=== PATIENT | female | born 1935 | race Caucasian/White ===

== ENCOUNTER 2019-04-08 16:19 | Observation (INO) | payer MEDICARE ==
[~2019-04-08] VITALS: Ht 165.1 cm; Wt 71.7 kg
[~2019-04-08 16:19] MED LIST: AMLODIPINE BESYL5 MG PO; BENADRYL 50MG C50 MG PO; CIPROFLOXACN500 MG PO; COZAAR100 MG PO; DOXYCYCL HYC100 MG PO; DUREZOL0.05 % OS; ECOTRIN LOW STR81 MG PO; ISOSORB MONO60 M1 PO; LORTAB 5/3255 MG PO; MEDDOSEPAK PO; METO50TA52 PO; MITIGARE0.6 MG PO; MURO OS; PEPCID20 MG PO; SIMVASTATIN20 MG PO; VALSARTAN320 MG PO
[2019-04-08 16:41] LABS: HEMATOCRIT 42.4 % (37.0-47.0); HEMOGLOBIN 13.5 g/dl (12.0-16.0); IMMATURE GRANULOCYTES 0.5 % (0.0-5.0); MEAN CELL VOLUME 95.3 fL CALC (80.0-100.0); MEAN CORPUSCULAR HGB 30.3 pG CALC (26.0-32.0); MEAN CORPUSCULAR HGB CONC 31.8 g/L CALC (32.0-36.0); NEUT# 4.89 thou/uL (2.00-7.15); RED BLOOD COUNT 4.45 mill/uL (4.20-5.60); RED CELL DISTRI WIDTH 14.4 % (11.5-15.5)
[2019-04-08 16:57] LABS: ANION GAP 16 (6-22 (CALC)); BUN 14 mg/dL (8-23); BUN/CREATININE RATIO 13 (12-20 (CALC)); CARBON DIOXIDE 25 mmol/l (22-30); CHLORIDE 102 mmol/l (95-108); CREATININE 1.1 mg/dL (0.5-1.0); GFR 47 ML/MIN (>=60 (CALC)); GFR FOR AFR.AMER. 57 ML/MIN (>=60 (CALC)); POTASSIUM 3.3 mmol/l (3.5-5.1); SODIUM 140 mmol/l (137-146)
[2019-04-08] MEDS ORDERED: PLAVIX75 MG PO (17:04)
[2019-04-08] MEDS ORDERED: LIPITOR40 M1 PO (17:04)
[2019-04-08] MEDS ORDERED: ACYCLOVIR800 MG PO (17:05)
[2019-04-08] MEDS ORDERED: PROTONIX40 M2 PO (17:05)
[2019-04-08] MEDS ORDERED: ACETAMIN500 M2 PO (17:07)
[2019-04-08] MEDS ORDERED: THERA TEARS A0.025 % OU (17:08)
[2019-04-08] MEDS ORDERED: MULTI VIT PO (17:08)
[2019-04-08] MEDS ORDERED: [UNRECOGNIZED DRUG - OTHER] PO (17:09)
[2019-04-08 19:30] VITALS: BP 127/66
[2019-04-09 00:29] VITALS: BP 131/77
[2019-04-09 04:23] VITALS: BP 161/72
[2019-04-09 05:25] LABS: HEMATOCRIT 42.5 % (37.0-47.0); HEMOGLOBIN 13.7 g/dl (12.0-16.0); IMMATURE GRANULOCYTES 0.4 % (0.0-5.0); MEAN CELL VOLUME 95.5 fL CALC (80.0-100.0); MEAN CORPUSCULAR HGB 30.8 pG CALC (26.0-32.0); MEAN CORPUSCULAR HGB CONC 32.2 g/L CALC (32.0-36.0); NEUT# 4.91 thou/uL (2.00-7.15); RED BLOOD COUNT 4.45 mill/uL (4.20-5.60); RED CELL DISTRI WIDTH 14.5 % (11.5-15.5)
[2019-04-09 05:50] LABS: ALBUMIN 3.9 g/dL (3.2-5.0); BILIRUBIN, TOTAL 0.7 mg/dL (0.0-1.4); BUN 12 mg/dL (8-23); BUN/CREATININE RATIO 14 (12-20 (CALC)); CARBON DIOXIDE 26 mmol/l (22-30); CHLORIDE 105 mmol/l (95-108); CREATININE 0.9 mg/dL (0.5-1.0); GFR 60 ML/MIN (>=60 (CALC)); GFR FOR AFR.AMER. > 60 ML/MIN (>=60 (CALC)); SODIUM 141 mmol/l (137-146); TOTAL PROTEIN 6.6 g/dL (6.3-8.2)
[2019-04-09 05:52] LABS: ALKALINE PHOSPHATASE 194 u/l (38-126); ANION GAP 14 (6-22 (CALC)); POTASSIUM 4.2 mmol/l (3.5-5.1); SGOT/AST 219 u/l (9-36)
[2019-04-09 08:50] VITALS: BP 135/56
[2019-04-09 10:40] VITALS: BP 148/74
[2019-04-09 14:22] LABS: URINE BILIRUBIN - DIPSTICK NEGATIVE (NEGATIVE); URINE BLOOD DIPSTICK NEGATIVE (NEGATIVE); URINE COLOR YELLOW; URINE GLUCOSE - DIPSTICK NEGATIVE (NEGATIVE); URINE KETONE NEGATIVE (NEGATIVE); URINE LEUK ESTERASE NEGATIVE (NEGATIVE); URINE NITRITE - DIPSTICK NEGATIVE (Negative); URINE PROTEIN - DIPSTICK NEGATIVE (NEG-TRACE); URINE SPECIFIC GRAVITY <=1.005; URINE UROBILINOGEN - DIPSTICK 0.2 E.U./dL (0.2)
== END 2019-04-09 15:40 | disposition home or self-care (01) ==
LOC: ED 16:19 → ED-I 18:44 → ED 19:01 → MS2 19:02
PROVIDERS: Family Medicine; Nurse Practitioner Family; ADMIT Internal Medicine; ATTEND Internal Medicine
DX: R07.9 Chest pain, unspecified (principal); R74.0 Nonspecific elevation of levels of transaminase and lactic acid dehydrogenase [LDH]; I12.9 Hypertensive chronic kidney disease with stage 1 through stage 4 chronic kidney disease, or unspecified chronic kidney disease; N18.3 Chronic kidney disease, stage 3 (moderate); I25.10 Atherosclerotic heart disease of native coronary artery without angina pectoris; M19.90 Unspecified osteoarthritis, unspecified site; M10.9 Gout, unspecified; K52.9 Noninfective gastroenteritis and colitis, unspecified; E78.5 Hyperlipidemia, unspecified; I25.2 Old myocardial infarction; B02.30 Zoster ocular disease, unspecified; Z86.73 Personal history of transient ischemic attack (TIA), and cerebral infarction without residual deficits; Z95.5 Presence of coronary angioplasty implant and graft; Z79.899 Other long term (current) drug therapy
CPT/HCPCS: G0378; J1650; Q9967

== ENCOUNTER 2019-06-28 | Emergency (ER) | payer MEDICARE ==
[~2019-06-28] MED LIST changes: +ACETAMIN500 M2 PO; +ACYCLOVIR800 MG PO; +LIPITOR40 M1 PO; +MULTI VIT PO; +PLAVIX75 MG PO; +PROTONIX40 M2 PO; +THERA TEARS A0.025 % OU; +[UNRECOGNIZED DRUG - OTHER] PO
[2019-06-28] MEDS ORDERED: ZPAK PO (12:36)
[2019-06-28] MEDS ORDERED: ATORVASTATIN CA40 MG PO (12:37)
[2019-06-28] MEDS ORDERED: TYLENOL500 MG PO (12:39)
[2019-06-28] MEDS ORDERED: TESSALON PERLE100 MG PO (13:56)
[2019-06-28] MEDS ORDERED: ZITHROMAX500 MG PO (13:56)
== END 2019-06-28 14:05 | disposition home or self-care (01) ==
DX: J06.9 Acute upper respiratory infection, unspecified (principal); I10 Essential (primary) hypertension

== ENCOUNTER 2019-10-17 06:37 | Emergency (ER) | payer MEDICARE ==
[~2019-10-17 06:37] MED LIST changes: +ATORVASTATIN CA40 MG PO; +TESSALON PERLE100 MG PO; +TYLENOL500 MG PO; +ZITHROMAX500 MG PO; +ZPAK PO
[2019-10-17] MEDS ORDERED: PROBIOTI3 (07:07)
[2019-10-17] MEDS ORDERED: VITA D-1000 PO (07:07)
[2019-10-17 07:37] LABS: HEMATOCRIT 41.7 % (37.0-47.0); HEMOGLOBIN 13.3 g/dl (12.0-16.0); IMMATURE GRANULOCYTES 0.3 % (0.0-5.0); MEAN CELL VOLUME 90.8 fL CALC (80.0-100.0); MEAN CORPUSCULAR HGB CONC 31.9 g/dL CAL (32.0-36.0); NEUT# 5.58 thou/uL (2.00-7.15); RED BLOOD COUNT 4.59 mill/uL (4.20-5.60)
[2019-10-17 07:37] LABS: URINE BILIRUBIN - DIPSTICK NEGATIVE (NEGATIVE); URINE BLOOD DIPSTICK NEGATIVE (NEGATIVE); URINE GLUCOSE - DIPSTICK NEGATIVE (NEGATIVE); URINE KETONE NEGATIVE (NEGATIVE); URINE LEUK ESTERASE NEGATIVE (NEGATIVE); URINE PH 6.5 (4.5-8.0); URINE PROTEIN - DIPSTICK TRACE mg/dL (NEG-TRACE)
[2019-10-17 07:43] LABS: URINE COLOR ORANGE
[2019-10-17 07:45] LABS: URINE NITRITE - DIPSTICK NEGATIVE (Negative)
[2019-10-17 07:51] LABS: ANION GAP 11 (6-22 (CALC)); BUN 17 mg/dL (8-23); BUN/CREATININE RATIO 18 (12-20 (CALC)); CARBON DIOXIDE 26 mmol/l (22-30); CHLORIDE 104 mmol/l (95-108); CREATININE 0.9 mg/dL (0.5-1.0); GFR 59 ML/MIN (>=60 (CALC)); GFR FOR AFR.AMER. > 60 ML/MIN (>=60 (CALC)); POTASSIUM 3.7 mmol/l (3.5-5.1); SODIUM 137 mmol/l (137-146)
[2019-10-17] MEDS ORDERED: METRONIDAZOL500 MG PO (10:39)
[2019-10-17] MEDS ORDERED: AUGMENTIN500TAB PO (10:39)
[2019-10-17 11:10] VITALS: BP 140/75
== END 2019-10-17 11:10 | disposition home or self-care (01) ==
LOC: ED 06:37
PROVIDERS: Student in an Organized Health Care Education/Training Program
DX: K57.32 Diverticulitis of large intestine without perforation or abscess without bleeding (principal); I10 Essential (primary) hypertension; I25.2 Old myocardial infarction; Z86.73 Personal history of transient ischemic attack (TIA), and cerebral infarction without residual deficits; Z87.440 Personal history of urinary (tract) infections
CPT/HCPCS: Q9967

== ENCOUNTER 2021-06-20 03:08 | Observation (INO) | payer MEDICARE ==
[~2021-06-20] VITALS: Ht 165.1 cm; Wt 70.0 kg
[~2021-06-20 03:08] MED LIST changes: +AUGMENTIN500TAB PO; +METRONIDAZOL500 MG PO; +PROBIOTI3; +VITA D-1000 PO
--- NOTE | 2021-06-20 03:08 | NUR ---
PT TO ROOM VIA W/C FOR BEDSIDE TRIAGE AFTER MOD ASSIST GETTING OUT OF THE CAR , COMFORT MEASURES PROVIDED
[2021-06-20 03:56] LABS: HEMATOCRIT 44.2 % (37.0-47.0); HEMOGLOBIN 14.1 g/dl (12.0-16.0); IMMATURE GRANULOCYTES 0.4 % (0.0-5.0); MEAN CELL VOLUME 95.5 fL CALC (80.0-100.0); MEAN CORPUSCULAR HGB 30.5 pG CALC (26.0-32.0); MEAN CORPUSCULAR HGB CONC 31.9 g/dL CAL (32.0-36.0); NEUT# 5.03 thou/uL (2.00-7.15); RED BLOOD COUNT 4.63 mill/uL (4.20-5.60); RED CELL DISTRI WIDTH 13.1 % (11.5-15.5)
--- NOTE | 2021-06-20 04:08 | NUR ---
LABS DRAWN, PT REPSOITONED FOR COMFORT AND BLANKETS PROVIDED FOR COMFORT, DAUGHTER AT BEDSIDE.
[2021-06-20 04:12] LABS: ALBUMIN 4.3 g/dL (3.2-5.0); ALKALINE PHOSPHATASE 66 u/l (38-126); BILIRUBIN, TOTAL 1.1 mg/dL (0.0-1.4); BUN 15 mg/dL (8-23); BUN/CREATININE RATIO 16 (12-20 (CALC)); CHLORIDE 105 mmol/l (95-108); CREATININE 0.9 mg/dL (0.5-1.0); GFR 59 ML/MIN (>=60 (CALC)); GFR FOR AFR.AMER. > 60 ML/MIN (>=60 (CALC)); POTASSIUM 4.1 mmol/l (3.5-5.1); SGOT/AST 35 u/l (9-36); SODIUM 139 mmol/l (137-146); TOTAL PROTEIN 7.6 g/dL (6.3-8.2)
[2021-06-20 04:13] LABS: ANION GAP 15 (6-22 (CALC)); CARBON DIOXIDE 23 mmol/l (22-30)
[2021-06-20 04:24] LABS: MYOGLOBIN 49 ng/mL (0 - 62)
--- NOTE | 2021-06-20 05:15 | NUR ---
MEDICATED FOR PAIN ORDERED, DAUGHTER REMAINS AT BEDSIDE
--- NOTE | 2021-06-20 05:59 | NUR ---
PT MEDICATED EARLIER ORDERED, NO NEW COMPLAINTS STATES PAIN REMAINS INYERMITTENT, WILL CONTINUE TO MONITOR,
--- NOTE | 2021-06-20 06:20 | NUR ---
REPORT CALLED TO FRED PARISH IN ICU.
--- NOTE | 2021-06-20 06:35 | NUR ---
PT TRANSPORTED TO ICU (MED SURG OVERFLOW) VIA WHEELCHAIR, ALL BELONGINGS SENT WITH PT.DAUGHTER AWAARE OF LOCATION AND REASON WELL ROOM NUMBER
[2021-06-20 07:00] VITALS: BP 157/77
[2021-06-20 08:00] VITALS: BP 124/56
--- NOTE | 2021-06-20 08:00 | NUR ---
PT ARRIVES TO ICU-6 FROM ER VIA WHEELCHAIR, SEEN ALERT AND ORIENTED X 3. LUNGS CLEAR, RA. BM TODAY WHILE IN ER. NO COMPLAINT OF CHEST PAIN OR SHORTNESS OF BREATH. ADMISSION ASSESSMENT COMPLETED WITHOUT ISSUE. PT STATES THAT SHE IS CHAIR BOUND, THIS FROM WEAK ARTHRITIC KNEES. DTR LIVES WITH PT.
--- NOTE | 2021-06-20 10:47 | NUR ---
PT SEEN BY DR MCCALL THIS MORNING. PT DENIES CHEST DISCOMFORT SINCE ARRIVAL TO ICU. DAUGHTER IS AT BEDSIDE NOW.
[2021-06-20 11:00] VITALS: BP 148/76
[2021-06-20 12:00] VITALS: BP 130/83
--- NOTE | 2021-06-20 13:21 | NUR ---
PT WITH DAUGHTER AT BEDSIDE. PT ASSISTED TO BSC TWICE THIS MORNING. PT DID HAVE EPISODE OF CHEST DISCOMFORT, EKG DONE, SHOWN TO DR MCCALL VIA TEXT.
[2021-06-20 14:00] VITALS: BP 133/72
--- NOTE | 2021-06-20 15:51 | NUR ---
PT VERBALIZES UNDERSTANDING OF DC INSTRUCTIONS, TAKEN BY WHEELCHAIR TO VEHICLE. PT LEAVES [facility] IN STABLE CONDITION.
== END 2021-06-20 15:45 | disposition home or self-care (01) ==
LOC: ED 03:08 → ED-I 04:55 → ED 05:08 → ICU 05:09
PROVIDERS: Emergency Medicine; ADMIT Hospitalist; ATTEND Hospitalist
DX: R07.9 Chest pain, unspecified (principal); I12.9 Hypertensive chronic kidney disease with stage 1 through stage 4 chronic kidney disease, or unspecified chronic kidney disease; N18.30 Chronic kidney disease, stage 3 unspecified; I25.10 Atherosclerotic heart disease of native coronary artery without angina pectoris; E78.5 Hyperlipidemia, unspecified; M06.9 Rheumatoid arthritis, unspecified; M10.9 Gout, unspecified; I25.2 Old myocardial infarction; Z95.5 Presence of coronary angioplasty implant and graft; Z86.73 Personal history of transient ischemic attack (TIA), and cerebral infarction without residual deficits; Z79.02 Long term (current) use of antithrombotics/antiplatelets; Z20.822 Contact with and (suspected) exposure to COVID-19
CPT/HCPCS: S0164

== ENCOUNTER 2022-01-14 18:40 | Emergency (ER) | payer MEDICARE ==
[~2022-01-14] VITALS: Ht 165.1 cm; Wt 68.0 kg
[2022-01-14] VITALS (11 sets, daily range): BP systolic 135–160; BP diastolic 65–83
[~2022-01-14 18:40] MED LIST changes: +CALCIUM 600 +600 MG PO; -PROBIOTI3; +PROBIOTIC ACIDO1 CA1 PO; -TYLENOL500 MG PO; -VITA D-1000 PO; +[UNRECOGNIZED DRUG - OTHER] PO
[2022-01-14 20:39] LABS: HEMATOCRIT 41.5 % (37.0-47.0); HEMOGLOBIN 13.6 g/dl (12.0-16.0); IMMATURE GRANULOCYTES 0.3 % (0.0-5.0); MEAN CELL VOLUME 91.8 fL CALC (80.0-100.0); MEAN CORPUSCULAR HGB 30.1 pG CALC (26.0-32.0); MEAN CORPUSCULAR HGB CONC 32.8 g/dL CAL (32.0-36.0); NEUT# 4.3 thou/uL (2.00-7.15); RED BLOOD COUNT 4.52 mill/uL (4.20-5.60); RED CELL DISTRI WIDTH 13.6 % (11.5-15.5)
[2022-01-14 20:52] LABS: ALBUMIN 4.3 g/dL (3.2-5.0); ALKALINE PHOSPHATASE 67 u/l (38-126); ANION GAP 14 (6-22 (CALC)); BILIRUBIN, TOTAL 0.7 mg/dL (0.0-1.4); BUN 15 mg/dL (8-23); BUN/CREATININE RATIO 16 (12-20 (CALC)); CARBON DIOXIDE 25 mmol/l (22-30); CHLORIDE 100 mmol/l (95-108); CREATININE 0.9 mg/dL (0.5-1.0); GFR FOR AFR.AMER. > 60 ML/MIN (>=60 (CALC)); GFR OTHER RACES 59 ML/MIN (>=60 (CALC)); POTASSIUM 4.1 mmol/l (3.5-5.1); SGOT/AST 43 u/l (9-36); TOTAL PROTEIN 7.4 g/dL (6.3-8.2)
[2022-01-14 20:53] LABS: SODIUM 135 mmol/l (137-146)
[2022-01-14] MEDS ORDERED: PAXLOVID PO (21:30)
== END 2022-01-14 23:08 | disposition home or self-care (01) ==
LOC: ED 18:40
PROVIDERS: Emergency Medicine
DX: U07.1 COVID-19 (principal); M79.10 Myalgia, unspecified site; R51.9 Headache, unspecified; I10 Essential (primary) hypertension; I25.2 Old myocardial infarction; M10.9 Gout, unspecified; Z95.5 Presence of coronary angioplasty implant and graft; Z86.73 Personal history of transient ischemic attack (TIA), and cerebral infarction without residual deficits

== ENCOUNTER 2022-01-17 07:19 | Emergency (ER) | payer MEDICARE ==
[2022-01-17] VITALS (23 sets, daily range): BP systolic 102–163; BP diastolic 67–125
[~2022-01-17] VITALS: Ht 165.1 cm; Wt 62.2 kg
[~2022-01-17 07:19] MED LIST changes: +PAXLOVID PO
[2022-01-17 07:37] LABS: HEMATOCRIT 46.9 % (37.0-47.0); IMMATURE GRANULOCYTES 0.4 % (0.0-5.0); MEAN CORPUSCULAR HGB 30.3 pG CALC (26.0-32.0); MEAN CORPUSCULAR HGB CONC 33.7 g/dL CAL (32.0-36.0); NEUT# 2.65 thou/uL (2.00-7.15); RED BLOOD COUNT 5.21 mill/uL (4.20-5.60); RED CELL DISTRI WIDTH 13.9 % (11.5-15.5)
[2022-01-17 07:44] LABS: HEMOGLOBIN 15.8 g/dl (12.0-16.0)
[2022-01-17 09:26] LABS: ALBUMIN 4.2 g/dL (3.2-5.0); ALKALINE PHOSPHATASE 63 u/l (38-126); ANION GAP 14 (6-22 (CALC)); BILIRUBIN, TOTAL 0.5 mg/dL (0.0-1.4); BUN 15 mg/dL (8-23); BUN/CREATININE RATIO 14 (12-20 (CALC)); CARBON DIOXIDE 25 mmol/l (22-30); CHLORIDE 99 mmol/l (95-108); GFR FOR AFR.AMER. > 60 ML/MIN (>=60 (CALC)); GFR OTHER RACES 52 ML/MIN (>=60 (CALC)); POTASSIUM 4.3 mmol/l (3.5-5.1); SGOT/AST 68 u/l (9-36); SODIUM 134 mmol/l (137-146); TOTAL PROTEIN 7.2 g/dL (6.3-8.2)
[2022-01-17 10:22] LABS: URINE BILIRUBIN - DIPSTICK NEGATIVE (NEGATIVE); URINE BLOOD DIPSTICK TRACE-INTACT (NEGATIVE); URINE COLOR YELLOW; URINE GLUCOSE - DIPSTICK NEGATIVE (NEGATIVE); URINE KETONE NEGATIVE (NEGATIVE); URINE LEUK ESTERASE TRACE (NEGATIVE); URINE PROTEIN - DIPSTICK NEGATIVE (NEG-TRACE); URINE SPECIFIC GRAVITY 1.015; URINE UROBILINOGEN - DIPSTICK 0.2 E.U./dL (0.2)
[2022-01-17 10:27] LABS: URINE NITRITE - DIPSTICK NEGATIVE (Negative)
== END 2022-01-17 13:42 | disposition home or self-care (01) ==
LOC: ED 07:19
PROVIDERS: Family Medicine
DX: R19.7 Diarrhea, unspecified (principal); U07.1 COVID-19; R10.31 Right lower quadrant pain; R10.32 Left lower quadrant pain
CPT/HCPCS: Q9967

== ENCOUNTER 2022-01-23 16:18 | Observation (INO) | payer MEDICARE ==
[2022-01-23] VITALS (14 sets, daily range): BP systolic 109–150; BP diastolic 71–97
[~2022-01-23] VITALS: Ht 165.1 cm; Wt 67.5 kg
[2022-01-23 17:11] LABS: URINE BILIRUBIN - DIPSTICK NEGATIVE (NEGATIVE); URINE BLOOD DIPSTICK NEGATIVE (NEGATIVE); URINE COLOR YELLOW; URINE GLUCOSE - DIPSTICK NEGATIVE (NEGATIVE); URINE KETONE NEGATIVE (NEGATIVE); URINE LEUK ESTERASE NEGATIVE (NEGATIVE); URINE PROTEIN - DIPSTICK NEGATIVE (NEG-TRACE); URINE UROBILINOGEN - DIPSTICK 0.2 E.U./dL (0.2)
[2022-01-23 17:12] LABS: HEMOGLOBIN 16.2 g/dl (12.0-16.0); IMMATURE GRANULOCYTES 2.1 % (0.0-5.0); MEAN CELL VOLUME 88.1 fL CALC (80.0-100.0); MEAN CORPUSCULAR HGB 29.7 pG CALC (26.0-32.0); MEAN CORPUSCULAR HGB CONC 33.8 g/dL CAL (32.0-36.0); NEUT# 6.5 thou/uL (2.00-7.15); RED BLOOD COUNT 5.45 mill/uL (4.20-5.60); RED CELL DISTRI WIDTH 13.6 % (11.5-15.5)
[2022-01-23 17:14] LABS: URINE NITRITE - DIPSTICK NEGATIVE (Negative)
[2022-01-23 17:40] LABS: ALBUMIN 4.7 g/dL (3.2-5.0); ALKALINE PHOSPHATASE 77 u/l (38-126); ANION GAP 18 (6-22 (CALC)); BILIRUBIN, TOTAL 0.6 mg/dL (0.0-1.4); BUN 29 mg/dL (8-23); BUN/CREATININE RATIO 29 (12-20 (CALC)); CARBON DIOXIDE 22 mmol/l (22-30); CHLORIDE 98 mmol/l (95-108); GFR FOR AFR.AMER. > 60 ML/MIN (>=60 (CALC)); GFR OTHER RACES 52 ML/MIN (>=60 (CALC)); POTASSIUM 4.1 mmol/l (3.5-5.1); SGOT/AST 36 u/l (9-36); SODIUM 134 mmol/l (137-146); TOTAL PROTEIN 7.7 g/dL (6.3-8.2)
[2022-01-24] VITALS (10 sets, daily range): BP systolic 88–124; BP diastolic 45–80
[2022-01-24 06:04] LABS: ANION GAP 14 (6-22 (CALC)); BUN 25 mg/dL (8-23); BUN/CREATININE RATIO 28 (12-20 (CALC)); CALCULATED LDLCHOLESTEROL 54 mg/dL (62-129 (CALC)); CARBON DIOXIDE 23 mmol/l (22-30); CHLORIDE 102 mmol/l (95-108); CREATININE 0.9 mg/dL (0.5-1.0); GFR FOR AFR.AMER. > 60 ML/MIN (>=60 (CALC)); GFR OTHER RACES 59 ML/MIN (>=60 (CALC)); HDL CHOLESTEROL 55 mg/dL (>=40); POTASSIUM 3.3 mmol/l (3.5-5.1); SODIUM 136 mmol/l (137-146); TOTAL CHOLESTEROL 158 mg/dl (0-199); TOTAL TRIGLYCERIDES 248 mg/dl (30-149); VLDL CHOLESTROL 50 mg/dl (0-48 (CALC))
[2022-01-24 06:05] LABS: MAGNESIUM 2.4 mg/dL (1.6-2.3)
[2022-01-24] MEDS ORDERED: FLONASE AL50 MCG/AC1 NAB (12:58)
[2022-01-25 00:36] VITALS: BP 113/57
[2022-01-25 04:45] VITALS: BP 133/75
[2022-01-25 05:52] LABS: HEMATOCRIT 45.1 % (37.0-47.0); HEMOGLOBIN 15.2 g/dl (12.0-16.0); IMMATURE GRANULOCYTES 2.8 % (0.0-5.0); MEAN CELL VOLUME 89.5 fL CALC (80.0-100.0); MEAN CORPUSCULAR HGB 30.2 pG CALC (26.0-32.0); MEAN CORPUSCULAR HGB CONC 33.7 g/dL CAL (32.0-36.0); NEUT# 5.62 thou/uL (2.00-7.15); RED BLOOD COUNT 5.04 mill/uL (4.20-5.60); RED CELL DISTRI WIDTH 13.9 % (11.5-15.5)
[2022-01-25 06:05] LABS: ALBUMIN 3.8 g/dL (3.2-5.0); ALKALINE PHOSPHATASE 62 u/l (38-126); ANION GAP 16 (6-22 (CALC)); BILIRUBIN, TOTAL 0.4 mg/dL (0.0-1.4); BUN 27 mg/dL (8-23); BUN/CREATININE RATIO 31 (12-20 (CALC)); CARBON DIOXIDE 20 mmol/l (22-30); CHLORIDE 103 mmol/l (95-108); CREATININE 0.9 mg/dL (0.5-1.0); GFR FOR AFR.AMER. > 60 ML/MIN (>=60 (CALC)); GFR OTHER RACES 59 ML/MIN (>=60 (CALC)); MAGNESIUM 2.3 mg/dL (1.6-2.3); SGOT/AST 32 u/l (9-36); SODIUM 135 mmol/l (137-146); TOTAL PROTEIN 6.5 g/dL (6.3-8.2)
[2022-01-25 06:06] LABS: POTASSIUM 4.4 mmol/l (3.5-5.1)
[2022-01-25 06:33] VITALS: BP 128/77
[2022-01-25 11:06] VITALS: BP 137/64
[2022-01-25] MEDS ORDERED: DEXAMETHASON6 MG PO (12:56)
== END 2022-01-25 15:01 | disposition home health service (06) ==
LOC: ED 16:18 → ED-I 18:20 → ED 18:20 → MS2 18:32 → ED 18:32 → MS2 01-25 15:01
PROVIDERS: Family Medicine; Nurse Practitioner; ADMIT Internal Medicine; ATTEND Internal Medicine
DX: U07.1 COVID-19 (principal); R19.7 Diarrhea, unspecified; R53.1 Weakness; R07.9 Chest pain, unspecified; R06.2 Wheezing; R05.9 Cough, unspecified; E87.6 Hypokalemia; I12.9 Hypertensive chronic kidney disease with stage 1 through stage 4 chronic kidney disease, or unspecified chronic kidney disease; N18.30 Chronic kidney disease, stage 3 unspecified; I25.10 Atherosclerotic heart disease of native coronary artery without angina pectoris; M10.9 Gout, unspecified; E78.5 Hyperlipidemia, unspecified; I25.2 Old myocardial infarction; Z95.5 Presence of coronary angioplasty implant and graft; Z86.73 Personal history of transient ischemic attack (TIA), and cerebral infarction without residual deficits; Z87.440 Personal history of urinary (tract) infections
CPT/HCPCS: J1650

== ENCOUNTER 2022-02-03 06:49 | Observation (INO) | payer MEDICARE ==
[2022-02-03] VITALS (21 sets, daily range): BP systolic 84–131; BP diastolic 53–71
[~2022-02-03] VITALS: Ht 165.1 cm; Wt 67.0 kg
[~2022-02-03 06:49] MED LIST changes: +DEXAMETHASON6 MG PO; +FLONASE AL50 MCG/AC1 NAB
--- NOTE | 2022-02-03 06:50 | NUR ---
PATIENT BROUGHT TO ROOM VIA EMS. NAD. PROVIDER NOTIFIED.
[2022-02-03 07:23] LABS: HEMATOCRIT 45.4 % (37.0-47.0); HEMOGLOBIN 15.2 g/dl (12.0-16.0); IMMATURE GRANULOCYTES 1.5 % (0.0-5.0); MEAN CELL VOLUME 88.3 fL CALC (80.0-100.0); MEAN CORPUSCULAR HGB 29.6 pG CALC (26.0-32.0); MEAN CORPUSCULAR HGB CONC 33.5 g/dL CAL (32.0-36.0); NEUT# 13.05 thou/uL (2.00-7.15); RED BLOOD COUNT 5.14 mill/uL (4.20-5.60); RED CELL DISTRI WIDTH 14.3 % (11.5-15.5)
[2022-02-03 07:29] LABS: ALBUMIN 3.5 g/dL (3.2-5.0); ALKALINE PHOSPHATASE 65 u/l (38-126); ANION GAP 13 (6-22 (CALC)); BUN 33 mg/dL (8-23); BUN/CREATININE RATIO 34 (12-20 (CALC)); CARBON DIOXIDE 20 mmol/l (22-30); CHLORIDE 102 mmol/l (95-108); GFR FOR AFR.AMER. > 60 ML/MIN (>=60 (CALC)); GFR OTHER RACES 52 ML/MIN (>=60 (CALC)); LIPASE 163 u/l (23-300); POTASSIUM 3.7 mmol/l (3.5-5.1); SGOT/AST 29 u/l (9-36); SODIUM 132 mmol/l (137-146); TOTAL PROTEIN 6.2 g/dL (6.3-8.2)
[2022-02-03 07:41] LABS: BILIRUBIN, TOTAL 1.2 mg/dL (0.0-1.4)
[2022-02-03 07:43] LABS: URINE BILIRUBIN - DIPSTICK NEGATIVE (NEGATIVE); URINE BLOOD DIPSTICK NEGATIVE (NEGATIVE); URINE COLOR YELLOW; URINE GLUCOSE - DIPSTICK NEGATIVE (NEGATIVE); URINE KETONE NEGATIVE (NEGATIVE); URINE LEUK ESTERASE NEGATIVE (NEGATIVE); URINE PH 5.5 (4.5-8.0); URINE PROTEIN - DIPSTICK NEGATIVE (NEG-TRACE); URINE UROBILINOGEN - DIPSTICK 0.2 E.U./dL (0.2)
--- NOTE | 2022-02-03 07:43 | NUR ---
Reassessment of patient completed. No distress noted.
[2022-02-03 07:46] LABS: URINE NITRITE - DIPSTICK NEGATIVE (Negative)
--- NOTE | 2022-02-03 09:20 | NUR ---
Reassessment of patient completed. No distress noted.
--- NOTE | 2022-02-03 10:07 | NUR ---
TRANSITION OF CARE REPORT TO PILY RN
--- NOTE | 2022-02-03 10:31 | NUR ---
PT ARRIVED FROM ED IN STABLE CONDITION. BEDSIDE REPORT RECIEVED. PT UNABLE TO TRANSFER. TOTAL TRANSFER DONE BY NURSES. PT ALERT X3. BREATHING IS EVEN AND NONLABORED. NO REPORTED PAIN. DAUGHTERS IN ROOM AT THIS TIME. TELE MONITOR IN PLACE. IV SITE PATENT. PT DENIES ANY NEEDS AT THIS TIME. CALL LIGHT IN REACH. ALL ISOLATION AND SAFETY PRECAUTIONS IN PLACE AT THIS TIME.
--- NOTE | 2022-02-03 10:46 | NUR ---
Admission Note Report Given to: EMANUEL TATE AT BEDSIDE Transported by: Wheelchair X Stretcher Transported with: X Nurse Transporter X Patent IV O2 X E M Assembler Location: ICU X [facility]
--- NOTE | 2022-02-03 12:00 | NUR ---
PT ALERT X3. DAUGHTERS IN ROOM AT BEDSIDE. BREATHING REMAINS THE SAME. PT MORE AWAKE THAN AT ADMISSION. IVF RUNNING ORDERED. PT DENIES ANY NEEDS AT THIS TIME. CALL LIGHT IN REACH. ALL SAFETY PRECAUTIONS AND ISOLATION PRECAUTIONS IN PLACE AT THIS TIME.
--- NOTE | 2022-02-03 16:00 | NUR ---
PT IN ROOM WITH DAUGHTER. EMS IV SITE REMOVED, CATHETER INTACT UPON REMOVAL. BREATHING REMAINS EVEN AND UNLABORED. PT DENIES ANY NEEDS AT THIS TIME. CALL LIGHT IN REACH. ALL SAFETY PRECAUTIONS IN PLACE AT THIS TIME.
--- NOTE | 2022-02-03 20:00 | NUR ---
PT RESTING IN BED, NO SIGNS OF DISTRESS NOTED, DAUGHTER AT BEDSIDE, PT ALERT AND ORIENTED X3, DISCUSSED POC, PT VERBALIZED UNDERSTANDING. PT STATES SHE IS TIRED AND JUST WANTS TO BE LEFT ALONE, DISCUSSED MEDICATIONS, PT DECLINED LOVENOX STATES SHE IS ON A BLOOD THINNER, PT SHOWED MOBILE HOME TECHNICIAN HER BRUISE FROM PREVIOUS LOVENOX INJ TO L ABD. PT ALSO HAS BRUISE TO LETHA. TEDS APPLIED. IV FLUIDS INFUSING TO L HAND, TOLERATING WELL. SKIN INTACT. ASSESSMENT COMPLETED, PT ASSISTED WITH BED MINAYA. BED ALARM IN PLACE. CALL LIGHT IN REACH, CONTINUE TO MONITOR.
[2022-02-04] VITALS (7 sets, daily range): BP systolic 113–141; BP diastolic 58–74
--- NOTE | 2022-02-04 | NUR ---
PT RESTING IN BED AWAKE, DAUGHTER AT BEDSIDE, VITALS OBTAINED. PT ASSISTED TO HER SIDE POSITONED WITH PILLOWS. CALL LIGHT IN REACH,CONTINUE TO MONITOR.
--- NOTE | 2022-02-04 04:00 | NUR ---
NOTIFIED BY ER PT HR HAS CONVERTED TO SR BUT PT HR DROPS DOWN TO THE 30'S, PT RESTING IN BED, AWAKE VOICES NO NEEDS OR COMPLAINTS, LENDING ACTIVITIES SUPERVISOR AT BEDSIDE FOR LABS. CALL LIGHT IN REACH, DAUGHTER AT BEDSIDE, CONTINUE TO MONITOR.
[2022-02-04 05:13] LABS: HEMATOCRIT 43.9 % (37.0-47.0); HEMOGLOBIN 14.1 g/dl (12.0-16.0); IMMATURE GRANULOCYTES 1.4 % (0.0-5.0); MEAN CELL VOLUME 93.2 fL CALC (80.0-100.0); MEAN CORPUSCULAR HGB 29.9 pG CALC (26.0-32.0); MEAN CORPUSCULAR HGB CONC 32.1 g/dL CAL (32.0-36.0); NEUT# 9.7 thou/uL (2.00-7.15); RED BLOOD COUNT 4.71 mill/uL (4.20-5.60); RED CELL DISTRI WIDTH 14.3 % (11.5-15.5)
[2022-02-04 05:38] LABS: ALBUMIN 2.9 g/dL (3.2-5.0); ALKALINE PHOSPHATASE 44 u/l (38-126); ANION GAP 12 (6-22 (CALC)); BILIRUBIN, TOTAL 1.1 mg/dL (0.0-1.4); BUN 22 mg/dL (8-23); BUN/CREATININE RATIO 28 (12-20 (CALC)); CARBON DIOXIDE 21 mmol/l (22-30); CHLORIDE 105 mmol/l (95-108); CREATININE 0.8 mg/dL (0.5-1.0); GFR FOR AFR.AMER. > 60 ML/MIN (>=60 (CALC)); GFR OTHER RACES > 60 ML/MIN (>=60 (CALC)); POTASSIUM 3.8 mmol/l (3.5-5.1); SGOT/AST 28 u/l (9-36); SODIUM 134 mmol/l (137-146); TOTAL PROTEIN 5.2 g/dL (6.3-8.2)
[2022-02-04 05:56] LABS: C-REACTIVE PROTEIN 8.9 mg/dL (0-0.9)
--- NOTE | 2022-02-04 07:33 | NUR ---
PT RESTING IN HIGH FOWLERS POSITION. A/OX3 ASSESSMENT AND VS COMPLETED. HEART RHYTHM ON TELE SR./AFIB. RESPIRATIONS UNLABRED. BOWEL SOUNDS ACTIVE. IV SITE NOTED TO LEFT HAND .PT DENIES ADDITIONAL NEEDS AT THE TIME FAMILY ATBEDISDE.ALL SAFETY PRECAUTIONS IN [place] CALL LIGHT IN REACH.
--- NOTE | 2022-02-04 12:48 | NUR ---
PT IS STILL ON AIRBORNE PRECAUTIONS . PT DENIES ADDITIONAL NEEDS AT THE TIME SAFETY PRECAUTIONS IN PLACE.
--- NOTE | 2022-02-04 16:00 | NUR ---
PT MEDICATED PER EMAR FOR TEMP OF 99.3 ALL SAFETY PRECAUTIONS IN PLACE FAMILY AT BEDSIDE.
--- NOTE | 2022-02-04 20:20 | NUR ---
PT RESTING IN BED, NO SIGNS OF DISTRESS NOTED, RESP EVEN AND UNLABORED. PT ALERT AND ORIENTED X3, NO EDEMA, TEDS IN PLACE. DAUGHTER AT BEDSIDE, DISCUSSED POC, PT DENIES ANY NEEDS OR COMPLAINTS AT THIS TIME. IVF INFUSING TO L HAND, ASSESSMENT COMPLETED, CALL LIGHT IN REACH,CONTINUE TO MONITOR.
--- NOTE | 2022-02-05 | NUR ---
PT RESTING IN BED, NO SIGNS OF DISTRESS NOTED, RESP EVEN AND UNLABORED. PT VOICES NO NEEDS OR COMPLAINTS AT THIS TIME. DAUGHTER AT BEDSIDE, CALL LIGHT IN REACH,CONTINUE TO MONITOR.
--- NOTE | 2022-02-05 04:00 | NUR ---
PT RESTING IN BED, NO SIGNS OF DISTRESS NOTED, RESP EVEN AND UNLABORED. DAUGHTER AT BEDSIDE, VOICES NO NEEDS OR COMPLAINTS AT THIS TIME. CALL LIGHT IN REACH,CONTINUE TO MONITOR.
[2022-02-05 04:10] VITALS: BP 134/61
[2022-02-05 04:53] LABS: HEMATOCRIT 41.8 % (37.0-47.0); HEMOGLOBIN 12.9 g/dl (12.0-16.0); IMMATURE GRANULOCYTES 1.6 % (0.0-5.0); MEAN CELL VOLUME 97.2 fL CALC (80.0-100.0); MEAN CORPUSCULAR HGB CONC 30.9 g/dL CAL (32.0-36.0); NEUT# 6.09 thou/uL (2.00-7.15); RED BLOOD COUNT 4.3 mill/uL (4.20-5.60); RED CELL DISTRI WIDTH 14.6 % (11.5-15.5)
[2022-02-05 05:14] LABS: BUN 19 mg/dL (8-23); BUN/CREATININE RATIO 30 (12-20 (CALC)); CARBON DIOXIDE 19 mmol/l (22-30); CHLORIDE 113 mmol/l (95-108); CREATININE 0.6 mg/dL (0.5-1.0); GFR FOR AFR.AMER. > 60 ML/MIN (>=60 (CALC)); GFR OTHER RACES > 60 ML/MIN (>=60 (CALC)); SODIUM 139 mmol/l (137-146)
[2022-02-05 05:19] LABS: ANION GAP 10 (6-22 (CALC))
--- NOTE | 2022-02-05 07:33 | NUR ---
PT RESTING IN HIGH FOWLERS POSITION. A.OX3 ASSESSMENTCOMPLETED. HR ON TELE. RESPIRATIONS UNLABORED RA. BOWEL SOUNDS ACTIVE. IV SITE NOTED TO . NS INFUSING. PT DENIES ADDITIONAL NEEDS AT THE TIME ALL SAFETY PRECAUTIONS IN PLACE. WITH CALL LIGHT IN REACH SAFETY PRECAUTIONS IN PLACE.
[2022-02-05 07:53] VITALS: BP 138/67
[2022-02-05 08:32] VITALS: BP 138/67
[2022-02-05 11:06] VITALS: BP 131/60
--- NOTE | 2022-02-05 12:03 | NUR ---
PT UP TO CHAIR . PT DENIES ADDITIONAL NEEDS FAMILY AT [facility].
[2022-02-05 15:44] VITALS: BP 137/68
--- NOTE | 2022-02-05 16:45 | NUR ---
RECIEVED BEDSIDE REPORT. PT RESTING IN BED, WITH DAUGHTER PRESENT IN ROOM. PT ALERT AND ORIENTATED X3. SPEECH IS CLEAR, FACIAL STRUCTURE IS SYMMETRICAL AND EYES ARE PERRL. BREATHING IS EVEN AND NONLABORED, ON ROOM AIR WITH CLEAR LUNG SOUNDS. UPPER EXTREMITIES STRONG, NO DRIFT. CAP REFILL BRISK. ABDOMEN NON DISTENDED, NON TENDER WITH ACTIVE BOWEL SOUNDS. PT REPORTS BEING BLOATED AND GASSY. LOWER EXTREMITIES ARE STRONG, NO DRIFT. PT ABLE TO LIFT UP ABDOMEN TO PLACE BEDPAN. P[T DENIES PAIN AND ANY OTHER NEEDS AT THIS TIME. CALL LIGHT IN REACH, ALL SAFETY AND ISOLATION PRECAUTIONS IN PLACE AT THIS TIME.
--- NOTE | 2022-02-05 16:59 | NUR ---
PT RESTING DENIES ADDITIONAL NEEDS AT THE MOMENT. ALL SAFETY PRECAUTIONS IN PLACE.
--- NOTE | 2022-02-05 17:31 | NUR ---
PT STATES HAS BEEN PASSING GAS AND STATES GAS PAINS IN LOWER ABDOMEN . PROVIDER INFORMED.
[2022-02-05 19:00] VITALS: BP 131/53
[2022-02-06 00:03] VITALS: BP 117/53
--- NOTE | 2022-02-06 00:05 | NUR ---
PT ASLEEP IN BED WITH DAUGHTER RESTING IN ROOM. PT AWOKE WHEN I WALKED IN THE ROOM. BREATHING REMAINS THE SAME AT THIS TIME. NO SIGNS OF DISCOMFORT. PT DENIES ANY NEEDS AT THIS TIME. CALL LIGT IN REACH. ALL SAFETY PRECAUTIONS IN PLACE AT THIS TIME.
[2022-02-06 04:09] VITALS: BP 134/63
--- NOTE | 2022-02-06 04:21 | NUR ---
PT ASLEEP IN BED, DAUGHTER STILL IN ROOM. PT BREATHING REMAINS THE SAME. NO SIGNS OF DISTRESS OR DISCOMFORT. AWOKE WHEN I ENTERED ROOM. PT DENIES ANY NEEDS AT THIS TIME. CALL LIGHT IN REACH. ALL SAFETY PRECAUTIONS IN PLACE AT THIS TIME.
[2022-02-06 05:21] LABS: HEMATOCRIT 38.5 % (37.0-47.0); HEMOGLOBIN 12.1 g/dl (12.0-16.0); IMMATURE GRANULOCYTES 1.1 % (0.0-5.0); MEAN CELL VOLUME 93.4 fL CALC (80.0-100.0); MEAN CORPUSCULAR HGB 29.4 pG CALC (26.0-32.0); MEAN CORPUSCULAR HGB CONC 31.4 g/dL CAL (32.0-36.0); NEUT# 5.91 thou/uL (2.00-7.15); RED BLOOD COUNT 4.12 mill/uL (4.20-5.60); RED CELL DISTRI WIDTH 14.5 % (11.5-15.5)
[2022-02-06 05:46] LABS: ANION GAP 11 (6-22 (CALC)); BUN 13 mg/dL (8-23); BUN/CREATININE RATIO 16 (12-20 (CALC)); CARBON DIOXIDE 23 mmol/l (22-30); CHLORIDE 106 mmol/l (95-108); CREATININE 0.8 mg/dL (0.5-1.0); GFR FOR AFR.AMER. > 60 ML/MIN (>=60 (CALC)); GFR OTHER RACES > 60 ML/MIN (>=60 (CALC)); POTASSIUM 3.7 mmol/l (3.5-5.1); SODIUM 136 mmol/l (137-146)
[2022-02-06 06:39] VITALS: BP 116/65
--- NOTE | 2022-02-06 07:00 | NUR ---
REPORT RECIVED FROM TIRE SHOP MECHANIC DURABILITY ENGINEER
--- NOTE | 2022-02-06 08:25 | NUR ---
PT EATING BREAKFAST. STATES NO PAIN. BREATHING EVEN AND UNLABORED. FALL/SAFTEY PRECAUTION IN PLACE. CALL LIGHT WITHIN REACH
--- NOTE | 2022-02-06 10:09 | NUR ---
PT RESTING IN BED WITH DAUGHTER AT BEDSIDE. UPDATED PT WITH CURRENT PLAN OF CARE. PT QUESTIONS TOWARDS PLACEMENT. CASE MANAGMENT INVOLVED. IV PATENT/FLUSHED. ASSESSMENT PERFORMED. TELE MONITOR IN PLACE, CONTINOUS MONITORING PER ED. FALL/SAFTEY PRECAUTION IN PLACE. CALL LIGHT WITHIN REACH
[2022-02-06 11:19] VITALS: BP 116/59
[2022-02-06 16:37] VITALS: BP 126/64
--- NOTE | 2022-02-06 17:23 | NUR ---
PT RESTING IN BED. BREATHING EVEN AND UNLABORED. STATES NO NEEDS AT THIS TIME. FALL/SAFTEY PRECAUTION IN PLACE. CALL LIGHT WITHIN REACH.
--- NOTE | 2022-02-06 18:50 | NUR ---
RECIEVED BEDSIDE REPORT, PT IN BED WITH DAUGHTER AT BEDSIDE. PT ALERT AND ORIENTATED X3. PT BREATHING IS EVEN AND NON-LABORED, CLEAR LUNG SOUNDS. OT UPPER EXTREMITY ARE STRONG, NO DRIFT NOTED. ABDOMEN IS NON-TENDER, NON-DISTENDED WITH ACTIVE BOWEL SOUNDS. BRUISE ON LEFT SIDE OF LOWER ABDOMEN APPEARS TO BE HEALING WELL. PT SKIN INTACT, ROCK AREA NOT RED. NO PAIN OR DSICOMFORT WHEN URINATING. LOWER EXTREMITIES STRONG, NO DRIFT. PT DENIES PAIN OR ANY OTHER NEEDS AT THIS TIME. CALL LIGHT IN REACH. ALL SAFETY PRECAUTIONS IN PLACE AT THIS TIME.
[2022-02-06 19:11] VITALS: BP 112/57
[2022-02-07] VITALS (7 sets, daily range): BP systolic 108–129; BP diastolic 59–73
--- NOTE | 2022-02-07 00:21 | NUR ---
PT BREATHING REMAINS EVEN AND NONLABORED. PT SLEEPINH UPON ENTRY. DAUGHTER IN ROOM ON COUCH. PT IV SITE PATENT, SALINE LOCKED. PT DENIES ANY NEEDS AT THIS TIME. CALL LIGHT IN REACH. ALL SAFETY PRECAUTIONS IN PLACE AT THIS TIME.
--- NOTE | 2022-02-07 04:00 | NUR ---
PT SLEEPING IN BED, DAUGHTER PRESENT AT BEDSIDE. PT BREATHING REMAINS THE SAME NO SIGNS OF DISTRESS. IV SITE PATENT. PT ARROUSES TO SPEECH, ALERT AND ORIENTATED X3, PT DENIES ANY NEEDS AT THIS TIME. CALL LIGHT IN REACH. ALL SAFETY PRECAUTIONS IN PLACE AT THIS TIME.
[2022-02-07 05:35] LABS: ALBUMIN 3.1 g/dL (3.2-5.0); ALKALINE PHOSPHATASE 59 u/l (38-126); ANION GAP 9 (6-22 (CALC)); BILIRUBIN, TOTAL 0.7 mg/dL (0.0-1.4); BUN 10 mg/dL (8-23); BUN/CREATININE RATIO 12 (12-20 (CALC)); CARBON DIOXIDE 26 mmol/l (22-30); CHLORIDE 106 mmol/l (95-108); CREATININE 0.8 mg/dL (0.5-1.0); GFR FOR AFR.AMER. > 60 ML/MIN (>=60 (CALC)); GFR OTHER RACES > 60 ML/MIN (>=60 (CALC)); POTASSIUM 3.3 mmol/l (3.5-5.1); SGOT/AST 26 u/l (9-36); SODIUM 137 mmol/l (137-146); TOTAL PROTEIN 5.6 g/dL (6.3-8.2)
--- NOTE | 2022-02-07 07:00 | NUR ---
BED SIDE REPORT RECIEVED FROM ACROBATIC DANCER REPAIRER RECREATIONAL VEHICLE
--- NOTE | 2022-02-07 08:10 | NUR ---
PT SITTING IN RECLINER WITH DAUGHTER AT BEDSIDE STATES NO PAIN. ASSESSMENT PERFORMED. TELEMONITOR INPLACE, CONTINOUS MONITORING PER ED. UPDATED PT ON CURRENT PLAN OF CARE. FALL/SAFTEY PRECAUTION IN PLACE, CALL LIGHT WITHIN REACH
--- NOTE | 2022-02-07 11:47 | NUR ---
PT EATING LUNCH, BREATHING EVEN AND UNLABORED. STATES NO NEEDS OR CONCERNS. FALL/SAFTEY PRECAUTION IN PLACE. CALL LIGHT WITHIN REACH
--- NOTE | 2022-02-07 16:13 | NUR ---
NEW IV ESTABLISHED 22G LFA PT TOLERATED WELL. IV CHANGE EDUCATION GIVEN. PT INDICATED UNDERSTANDING. FALL/SAFTEY PRECAUTION IN PLACE. CALL LIGHT WITHIN REACH
--- NOTE | 2022-02-07 20:45 | NUR ---
PT RESTING IN BED, NO SIGNS OF DISTRESS NOTED, RESP EVEN AND UNLABORED. PT ALERT AND ORIENTED X3, DISCUSSED POC. SKIN INTACT, PT MEDICATED PER MAR. PT VOICES NO NEEDS OR COMPLAINTS AT THIS TIME. ASSESSMENT COMPLETED, CALL LIGHT IN REACH,CONTINUE TO MONITOR.
--- NOTE | 2022-02-08 | NUR ---
PT RESTING IN BED, VISUAL ARTIST OBTAINING VITALS, PT VOICES NO NEEDS OR COMPLAINTS AT THIS TIME, CALL LIGHT IN REACH,CONTINUE TO MONITOR.
[2022-02-08 00:06] VITALS: BP 114/50
--- NOTE | 2022-02-08 03:57 | NUR ---
PT RESTING IN BED WITH EYES CLOSED, NO SIGNS OF DISTRESS NOTED, RESP EVEN AND UNLABORED. CALL LIGHT IN REACH,CONTINUE TO MONITOR.
[2022-02-08 04:07] VITALS: BP 122/58
[2022-02-08 07:17] VITALS: BP 134/75
--- NOTE | 2022-02-08 07:30 | NUR ---
REPORT GIVEN BY BEBETO BUSTILLO. PATIENT IS ALERT AND ORIENTED X 4. 22 LFA SALINE LOCKED. COVID POSTIVIE. SR ON TELEMETRY. ROOM AIR. PATIENT INFORMED TO CALL WITH ANY QUESTIONS OR CONCERN. PLAN OF CARE DISCUSSED. FALL AND SAFTEY PRECAUTIONS IN PLACE.
[2022-02-08 10:31] VITALS: BP 113/60
--- NOTE | 2022-02-08 11:28 | NUR ---
CODE BROWN, VERTICAL MOVE PER POLICY AT 1051. PATIENT ROOM ANR 5
--- NOTE | 2022-02-08 15:24 | NUR ---
PT AT THE BEDSIDE
[2022-02-08 15:33] VITALS: BP 170/78
[2022-02-08 19:00] VITALS: BP 123/60
--- NOTE | 2022-02-08 19:30 | NUR ---
PT RESTING IN BED, NO SIGNS OF DISTRESS NOTED, RESP EVEN AND UNLABORED. PT ON RA, SATS WNL. SKIN INTACT, DISCUSSED POC, PT VERBALIZED UNDERSTANDING. ASSISTED PT TO BSC, TOLERATED WELL. NO EDEMA. ASSESSMENT COMPLETED, CALL LIGHT IN REACH, CONTINUE TO MONITOR.
--- NOTE | 2022-02-08 20:19 | NUR ---
REPORT GIVEN TO JAMESON PARISH.
--- NOTE | 2022-02-08 20:24 | NUR ---
TRANSFERRED TO ROOM 14 IN ER AND ASSUMED CARE. PT RESTING. DENIES CONCERNS AT THIS TIME.
--- NOTE | 2022-02-09 00:29 | NUR ---
PT RESTING. NAD. PAIN RELIEF ADEQUATE. PT STATES PAIN 3/10
--- NOTE | 2022-02-09 01:16 | NUR ---
RECEIVED PT, PT RESTING IN BED, NO SIGNS OF DISTRESS NOTED, RESP EVEN AND UNLABORED. DENIES ANY NEEDS OR COMPLAINTS AT THIS TIME. CALL LIGHT IN REACH,CONTINUE TO MONITOR.
--- NOTE | 2022-02-09 03:54 | NUR ---
PT RESTING IN BED, NO SIGNS OF DISTRESS NOTED, RESP EVEN AND UNLABORED. VITALS OBTAINED, VOICES NO NEEDS OR COMPLAINTS AT THIS TIME, CALL LIGHT IN REACH,CONTINUE TO MONITOR.
[2022-02-09 04:00] VITALS: BP 113/65
[2022-02-09 05:58] VITALS: BP 135/67
--- NOTE | 2022-02-09 08:01 | NUR ---
SHIFT CHANGE REPORT, PT TRANSPORTED BACK TO UNIT AND SETTLED IN ROOM, PLEASANTLY AWAKE ALERT AND ORIENED, NO C/O DISCOMFORT, TELE MONITOR IN PLACE, TELE MONITOR IN PLACE, SET UP FOR MEAL AT THIS TIME, CALL NEIL IN REACH AND BED LOCKED IN LOWEST POSITION.
[2022-02-09 10:34] VITALS: BP 118/62
--- NOTE | 2022-02-09 12:06 | NUR ---
STATUS UNCHANGED, MEAL SERVED AT THIS TIME, ALL NEEDS ADDRESSED.
--- NOTE | 2022-02-09 16:00 | NUR ---
RELAXING IN BED, ALL NEEDS ADDRESSED, NO NEW COMPLAINS
[2022-02-09 16:07] VITALS: BP 128/58
[2022-02-09 18:52] VITALS: BP 126/70
--- NOTE | 2022-02-09 20:00 | NUR ---
PATIENT RESTING COMFORTABLY. ASSESSMENT OF PATIENT VITALS ARE STABLE
[2022-02-10] VITALS (8 sets, daily range): BP systolic 103–138; BP diastolic 58–69
--- NOTE | 2022-02-10 01:08 | NUR ---
PATIENT RESTING COMFORABLY AND ASLEEP
--- NOTE | 2022-02-10 12:00 | NUR ---
PATIENT IS SITTING IN CHAIR WATCHING TV AND EATING LUNCH. PATIENT STATES THAT SHE IS FEELING GOOD. DENIES ANY DISCOMFORT OR DISTRESS. CALL LIGHT AND BEDSIDE TABLE WITH IN REACH. ADVISED TO CALL IF SHE NEEDS ANYTHING. PATIENT VERBALIZED UNDERSTANDING.
--- NOTE | 2022-02-10 16:00 | NUR ---
PATIENT IS RESTING IN BED. NO SXS OF DISTRESS. CALL LIGHT AND BEDSIDE TABLE WITHIN REACH OF PATIENT. ADVISED TO CALL IF NEEDING ANYTHING. PATIENT VERBALIZED UNDERSTANDING.
--- NOTE | 2022-02-10 20:41 | NUR ---
PATIENT RESTING COMFORABLY IN BED NO COMPLAINTS OR CONCERNS
[2022-02-11] VITALS: BP 138/69
--- NOTE | 2022-02-11 01:45 | NUR ---
PATIENT REMAINS PEACFULLY ASLEEP
[2022-02-11 04:12] VITALS: BP 140/63
--- NOTE | 2022-02-11 05:23 | NUR ---
PATIENT ASLEEP. PATIENT RESTED ALL NIGHT
[2022-02-11 06:16] VITALS: BP 126/60
--- NOTE | 2022-02-11 08:00 | NUR ---
GOT REPORT FROM MAKE UP OPERATOR HELPER NURSE. PATIENT ASSESSED. PATIENT IS SITTING UP EATING BF AND WATCHING TV. PATIENT HAS NO COMPLAINTS AT THIS TIME. FALL PRECAUTIONS ARE IN PLACE. CALL LIGHT AND BEDSIDE TABLE WITH IN REACH. ADVISED TO CALL IS NEEDING ANYTHING. PATIENT VERBALIZED UNDERSTANDING.
[2022-02-11 11:20] VITALS: BP 131/70
--- NOTE | 2022-02-11 12:00 | NUR ---
PATIENT IS SITTING IN BED RESTING WATCHING TV. PATIENT DENIES ANY DISCOMFORT OR CONCERNS. NO SXS OF ANY DISTRESS. FALL PRECAUTIONS ARE IN PLACE. CALL LIGHT AND BEDSIDE TABLE WITHIN REACH OF PATIENT. ADVISED TO CALL IF NEEDING ANYTHING. PATIENT VERBALIZED UNDERSTANDING.
[2022-02-11 16:33] VITALS: BP 114/63
[2022-02-11 19:23] VITALS: BP 116/63
--- NOTE | 2022-02-11 22:28 | NUR ---
BRIAN RN DID NOT HAVE [employer] ACCESS AT SHIFT CHANGE. CUT OFF SAW TENDER METAL WITNESSED MEDICATION ADMINISTRATION.
[2022-02-12 00:22] VITALS: BP 98/53
[2022-02-12 04:17] VITALS: BP 119/63
[2022-02-12 06:11] VITALS: BP 130/61
--- NOTE | 2022-02-12 09:20 | NUR ---
Dr Solomon at bedside for assessment and discussion of POC
[2022-02-12 11:09] VITALS: BP 122/62
--- NOTE | 2022-02-12 12:00 | NUR ---
RECEIVED PT IN BED ASLEEP , NO SIGNS OF DISTRESS NOTED
[2022-02-12 16:18] VITALS: BP 158/58
[2022-02-12 19:14] VITALS: BP 115/64
[2022-02-13 04:00] VITALS: BP 86/57
[2022-02-13 05:48] LABS: HEMATOCRIT 36.4 % (37.0-47.0); HEMOGLOBIN 11.9 g/dl (12.0-16.0); MEAN CELL VOLUME 93.1 fL CALC (80.0-100.0); MEAN CORPUSCULAR HGB 30.4 pG CALC (26.0-32.0); MEAN CORPUSCULAR HGB CONC 32.7 g/dL CAL (32.0-36.0); RED BLOOD COUNT 3.91 mill/uL (4.20-5.60); RED CELL DISTRI WIDTH 14.6 % (11.5-15.5)
[2022-02-13 06:09] LABS: ANION GAP 13 (6-22 (CALC)); BUN 16 mg/dL (8-23); BUN/CREATININE RATIO 19 (12-20 (CALC)); CARBON DIOXIDE 26 mmol/l (22-30); CHLORIDE 105 mmol/l (95-108); CREATININE 0.8 mg/dL (0.5-1.0); GFR FOR AFR.AMER. > 60 ML/MIN (>=60 (CALC)); GFR OTHER RACES > 60 ML/MIN (>=60 (CALC)); MAGNESIUM 1.9 mg/dL (1.6-2.3); POTASSIUM 3.5 mmol/l (3.5-5.1); SODIUM 141 mmol/l (137-146)
[2022-02-13 06:42] VITALS: BP 101/48
== END 2022-02-13 11:25 | disposition home health service (06) ==
LOC: ED 06:49 → ED-I 08:27 → ED 08:37 → MS2 08:38
PROVIDERS: Emergency Medicine; Internal Medicine; Nurse Practitioner; ADMIT Internal Medicine; ATTEND Internal Medicine
DX: R53.83 Other fatigue (principal); U09.9 Post COVID-19 condition, unspecified; E86.0 Dehydration; E87.1 Hypo-osmolality and hyponatremia; E87.6 Hypokalemia; I95.9 Hypotension, unspecified; I25.10 Atherosclerotic heart disease of native coronary artery without angina pectoris; I12.9 Hypertensive chronic kidney disease with stage 1 through stage 4 chronic kidney disease, or unspecified chronic kidney disease; N18.30 Chronic kidney disease, stage 3 unspecified; M10.9 Gout, unspecified; E78.5 Hyperlipidemia, unspecified; I25.2 Old myocardial infarction; Z95.5 Presence of coronary angioplasty implant and graft; Z86.73 Personal history of transient ischemic attack (TIA), and cerebral infarction without residual deficits; Z79.02 Long term (current) use of antithrombotics/antiplatelets
CPT/HCPCS: J1650